=== PATIENT | male | born 1935 | race African-American/Black ===

== ENCOUNTER 2020-01-25 12:16 | Inpatient (IN) ==
[2020-01-25] MEDS ORDERED: ACETAMINOPHEN 325 MG TABLET PO PRN (12:19)
[2020-01-25] MEDS ORDERED: ONDANSETRON 4 MG/2 ML VIAL IV PRN (12:19)
[2020-01-25] MEDS ORDERED: DEXTROSE 10% 250 ML BAG IV PRN ×2 (12:24→16:04)
[2020-01-25] MEDS ORDERED: GLUCAGON 1 MG VIAL IM PRN ×2 (12:24→16:04)
[2020-01-25] MEDS: NYSTATIN 500,000 UNIT/5 ML UDCUP SWISH/SWAL SCH ×3 (16:10→20:56)
[2020-01-25 16:26] LABS: Apearance,Urine CLEAR (Clear); Bacteria,Urine Occasional /HPF (Few); Bilirubin,Urine Negative (Negative); Blood, Urine Negative (Negative); Glucose,Urine (UA) Negative (Negative); Ketones,Urine 5 mg/dL (Negative); Mucus,Urine Occasional /LPF (Occasional); Nitrite,Urine Negative (Negative); Protein,Urine 30 MG/DL; RBC,Urine 1 /HPF (0-4); Squamous Epithelial Cell,Urine Occasional /HPF (0-10); Urine Color Yellow (Yellow); Urine Specific Gravity 1.023 (1.001-1.035); WBC,Urine 3 /HPF (0-6)
[2020-01-25] MEDS: SODIUM CHLORIDE 0.9% 1,000 ML IV SCH (18:09)
[2020-01-25] MEDS: LEVOFLOXACIN INJ 500 MG in PREMIX 1 EACH IV SCH (18:09)
[2020-01-25] MEDS: INSULIN LISPRO 100 UNIT/ML SUBCUT SCH (18:09)
[2020-01-25] MEDS: BRIMONIDINE/TIMOLOL OPH SOLN 5 ML BOTTLE LEFT EYE SCH (20:54)
[2020-01-25] MEDS: BIMATOPROST 0.01% OPH SOLN 2.5 ML BOTTLE BOTH EYES SCH (20:55)
[2020-01-25] MEDS: POTASSIUM CHLORIDE 20 MEQ TABLET PO SCH (20:56)
[2020-01-25] MEDS: PANTOPRAZOLE 40 MG TABLET PO SCH (20:56)
[2020-01-25] MEDS: DOCUSATE SODIUM 100 MG CAPSULE PO SCH (20:56)
[2020-01-26] MEDS: SODIUM CHLORIDE 0.9% 1,000 ML IV SCH ×4 (04:22→20:39)
[2020-01-26] MEDS: LEVOTHYROXINE 25 MCG TABLET PO SCH (06:01)
[2020-01-26 07:01] LABS: Eosinophils % 0.4 % (0.00-10.9); Hematocrit 26.5 VOL% (42.0-52.0); Hemoglobin 8.6 GM/DL (14.0-18.0); Immature Granulocytes % 2.1 %; Immature Granulocytes Absolute 0.11 #; Lymphocytes # 0.6 10*3/uL (1.4-4.0); Lymphocytes % 11.3 % (21.2-54.2); Mean Corpuscular HGB Conc 32.5 GM/DL (32-36); Mean Corpuscular Volume 74.9 FL (87-102); Mean Platelet Volume 10.4 FL (9.6-12.0); Monocytes % 6.5 % (1.7-12.7); Neutrophils % 79.7 % (38.7-73.9); Platelet Count 199 T/CUMM (130-400); Red Blood Count 3.54 MC/CUMM (3.8-5.5); Red Cell Distribution Width 19.9 % (9.3-17.3); White Blood Count 5.2 T/CUMM (4-12)
[2020-01-26 07:20] LABS: Calcium 7.6 MG/DL (8.5-10.1); Osmolality,Calculated 283.3 MOS/KG (273-304)
[2020-01-26] MEDS: metFORMIN 500 MG TABLET PO SCH (08:22)
[2020-01-26] MEDS: SIMVASTATIN 20 MG TABLET PO SCH (08:22)
[2020-01-26] MEDS: LOSARTAN/HCTZ 50-12.5 MG TABLET PO SCH (08:22)
[2020-01-26] MEDS: MULTIVITAMIN (INTRINSIC) CAPSULE PO SCH (08:22)
[2020-01-26] MEDS: FENOFIBRATE 145 MG TABLET PO SCH (08:22)
[2020-01-26] MEDS: DOCUSATE SODIUM 100 MG CAPSULE PO SCH ×2 (08:23→20:38)
[2020-01-26] MEDS: POTASSIUM CHLORIDE 20 MEQ TABLET PO SCH ×3 (08:23→20:37)
[2020-01-26] MEDS: NYSTATIN 500,000 UNIT/5 ML UDCUP SWISH/SWAL SCH ×4 (08:23→20:38)
[2020-01-26] MEDS: PANTOPRAZOLE 40 MG TABLET PO SCH ×2 (08:23→20:37)
[2020-01-26] MEDS: BRIMONIDINE/TIMOLOL OPH SOLN 5 ML BOTTLE LEFT EYE SCH ×2 (08:28→20:39)
[2020-01-26] MEDS ORDERED: PANTOPRAZOLE 40 MG TABLET PO SCH (09:00)
[2020-01-26] MEDS: INSULIN LISPRO 100 UNIT/ML SUBCUT SCH ×2 (09:32→18:01)
[2020-01-26] MEDS: LEVOFLOXACIN INJ 500 MG in PREMIX 1 EACH IV SCH (13:42)
[2020-01-26] MEDS: BIMATOPROST 0.01% OPH SOLN 2.5 ML BOTTLE BOTH EYES SCH (20:38)
[2020-01-27 05:47] LABS: Basophils % 0.2 % (0.0-0.8); Eosinophils # 0.1 10*3/uL (0.0-0.87); Eosinophils % 1.4 % (0.00-10.9); Hematocrit 27.3 VOL% (42.0-52.0); Hemoglobin 8.6 GM/DL (14.0-18.0); Immature Granulocytes % 2.7 %; Immature Granulocytes Absolute 0.12 #; Lymphocytes # 0.7 10*3/uL (1.4-4.0); Lymphocytes % 15.1 % (21.2-54.2); Mean Corpuscular HGB Conc 31.5 GM/DL (32-36); Mean Corpuscular Volume 77.1 FL (87-102); Mean Platelet Volume 10.4 FL (9.6-12.0); Monocytes % 6.4 % (1.7-12.7); Neutrophils % 74.2 % (38.7-73.9); Platelet Count 208 T/CUMM (130-400); Red Blood Count 3.54 MC/CUMM (3.8-5.5); Red Cell Distribution Width 20.3 % (9.3-17.3); White Blood Count 4.4 T/CUMM (4-12)
[2020-01-27 06:09] LABS: Calcium 7.6 MG/DL (8.5-10.1)
[2020-01-27 06:14] LABS: Burr Cells Slight; Hypochromasia 1+; Lymphocytes 12 % (20-55); Ovalocytes Slight; Platelet Estimate Adequate; Segmented Neutrophils 84 % (50-85); Total Cells Counted 100
[2020-01-27] MEDS: LEVOTHYROXINE 25 MCG TABLET PO SCH (07:05)
[2020-01-27] MEDS: FENOFIBRATE 145 MG TABLET PO SCH (08:34)
[2020-01-27] MEDS: metFORMIN 500 MG TABLET PO SCH (08:34)
[2020-01-27] MEDS: NYSTATIN 500,000 UNIT/5 ML UDCUP SWISH/SWAL SCH ×3 (08:34→18:20)
[2020-01-27] MEDS: POTASSIUM CHLORIDE 20 MEQ TABLET PO SCH ×3 (08:34→20:22)
[2020-01-27] MEDS: SIMVASTATIN 20 MG TABLET PO SCH (08:34)
[2020-01-27] MEDS: DOCUSATE SODIUM 100 MG CAPSULE PO SCH ×2 (08:34→20:23)
[2020-01-27] MEDS: LOSARTAN/HCTZ 50-12.5 MG TABLET PO SCH (08:35)
[2020-01-27] MEDS: MULTIVITAMIN (INTRINSIC) CAPSULE PO SCH (08:35)
[2020-01-27] MEDS: PANTOPRAZOLE 40 MG TABLET PO SCH (08:35)
[2020-01-27] MEDS: BRIMONIDINE/TIMOLOL OPH SOLN 5 ML BOTTLE LEFT EYE SCH ×2 (08:51→20:22)
[2020-01-27] MEDS ORDERED: FUROSEMIDE 20 MG TABLET PO SCH (09:00)
[2020-01-27] MEDS: INSULIN LISPRO 100 UNIT/ML SUBCUT SCH ×2 (10:20→18:20)
[2020-01-27] MEDS: SODIUM CHLORIDE 0.9% 1,000 ML IV SCH ×2 (11:58→14:47)
[2020-01-27] MEDS: LEVOFLOXACIN INJ 500 MG in PREMIX 1 EACH IV SCH (13:24)
[2020-01-27] MEDS: BIMATOPROST 0.01% OPH SOLN 2.5 ML BOTTLE BOTH EYES SCH (20:22)
[2020-01-27] MEDS ORDERED: ENOXAPARIN 40 MG/0.4 ML SYRINGE SUBCUT SCH (21:00)
[2020-01-28] MEDS: SODIUM CHLORIDE 0.9% 1,000 ML IV SCH ×2 (02:06→05:52)
[2020-01-28] MEDS: PANTOPRAZOLE 40 MG TABLET PO SCH ×2 (02:07→09:08)
[2020-01-28] MEDS: NYSTATIN 500,000 UNIT/5 ML UDCUP SWISH/SWAL SCH ×3 (02:07→12:07)
[2020-01-28] MEDS: CARBIDOPA/LEVODOPA 25-100 MG TABLET PO SCH ×2 (02:07→09:08)
[2020-01-28 05:34] LABS: Basophils % 0.2 % (0.0-0.8); Eosinophils % 0.9 % (0.00-10.9); Hematocrit 26.2 VOL% (42.0-52.0); Hemoglobin 8.4 GM/DL (14.0-18.0); Immature Granulocytes % 3.3 %; Immature Granulocytes Absolute 0.14 #; Lymphocytes # 0.6 10*3/uL (1.4-4.0); Lymphocytes % 14.9 % (21.2-54.2); Mean Corpuscular HGB Conc 32.1 GM/DL (32-36); Mean Corpuscular Volume 74.9 FL (87-102); Monocytes % 6.5 % (1.7-12.7); Neutrophils % 74.2 % (38.7-73.9); Platelet Count 222 T/CUMM (130-400); Red Cell Distribution Width 20.4 % (9.3-17.3); White Blood Count 4.3 T/CUMM (4-12)
[2020-01-28 05:54] LABS: Calcium 7.6 MG/DL (8.5-10.1); Osmolality,Calculated 274.5 MOS/KG (273-304)
[2020-01-28 06:06] LABS: Eosinophils 1 % (0-10); Hypochromasia 2+; Lymphocytes 9 % (20-55); Microcytosis 1+; Nucleated Red Blood Cells 1 (0-5); Ovalocytes Slight; Platelet Estimate Adequate; Segmented Neutrophils 80 % (50-85); Total Cells Counted 100
[2020-01-28] MEDS: INSULIN LISPRO 100 UNIT/ML SUBCUT SCH (09:08)
[2020-01-28] MEDS: POTASSIUM CHLORIDE 20 MEQ TABLET PO SCH (09:08)
[2020-01-28] MEDS: LEVOTHYROXINE 25 MCG TABLET PO SCH (09:08)
[2020-01-28] MEDS: SIMVASTATIN 20 MG TABLET PO SCH (09:08)
[2020-01-28] MEDS: LOSARTAN/HCTZ 50-12.5 MG TABLET PO SCH (09:08)
[2020-01-28] MEDS: FENOFIBRATE 145 MG TABLET PO SCH (09:08)
[2020-01-28] MEDS: DOCUSATE SODIUM 100 MG CAPSULE PO SCH (09:08)
[2020-01-28] MEDS: MULTIVITAMIN (INTRINSIC) CAPSULE PO SCH (09:08)
[2020-01-28] MEDS: BRIMONIDINE/TIMOLOL OPH SOLN 5 ML BOTTLE LEFT EYE SCH (09:11)
[2020-01-28 12:05] VITALS: BP 135/63
[2020-01-28] MEDS: LEVOFLOXACIN INJ 500 MG in PREMIX 1 EACH IV SCH (12:09)
[2020-01-28] MEDS: metFORMIN 500 MG TABLET PO SCH (12:11)
[2020-02-01] MEDS ORDERED: ERGOCALCIFEROL 50,000 UNIT CAPSULE PO SCH (09:00)
== END 2020-01-28 13:25 | disposition swing bed (61) | DRG 56 ==
LOC: N.3E 12:49
PROVIDERS: ADMIT Internal Medicine; ATTEND Internal Medicine